=== PATIENT | female | born 1975 | race Two or more races ===

== ENCOUNTER 2017-12-17 11:22 | Emergency (ER) | payer BC ==
[~2017-12-17 11:22] MED LIST: ASP325 PO; BENZ100C4 PO; CELE-1 PO; CIP500 PO; CYC10 PO; DAR100 PO; DIFL5DRO OP; DULO30CA35 PO; FOL1 PO; GABA-492 PO; HYDR200T77 PO; KET10 PO; MELO-150 PO; METHOTREXATE PO; ONDA4TAB PO; PAN40 PO; PER PO; PRO25 PO; SERT25TA87 PO; TRAM-420 PO; TYLENOL ARTHRITIS PO; [UNRECOGNIZED DRUG - CODE] PO
--- NOTE | 2017-12-17 11:26 | ER Report ---
History and Physical Time Seen By MD: 11:25 Hx. of Stated Complaint: mscp radiating to left neck HPI/ROS 42 year old with intermittant cp x 3 days. today worseing pain, midsternal rad to left neck. workup 11 years ago and was diagnosed with lupus at that time Allergies: Coded Allergies: Penicillins (Verified Allergy, Severe, ANAPHYLAXIS, 10/07/17) amoxicillin (Verified Allergy, Severe, AIRWAY OBSTRUCTION, 10/07/17) clavulanic acid (Verified Allergy, Severe, AIRWAY OBSTRUCTION, 10/07/17) Sulfa (Sulfonamide Antibiotics) (Verified Allergy, Intermediate, "PORES BLEED", 10/07/17) adhesive (Verified Allergy, Intermediate, RASH, 10/07/17) ibuprofen (Verified Allergy, Intermediate, RASH, 10/07/17) hydromorphone (Verified Adverse Reaction, Mild, SHAKING, 10/07/17) Home Meds Active Scripts Cyclobenzaprine Hcl (CYCLOBENZAPRINE HCL) 10 Mg Tablet, 5-10 MG PO TID Y for MUSCLE SPASMS, #9 TAB Prov:MIRANDA STEINER 12/17/17 Reported Medications Cyclobenzaprine Hcl (Flexeril) 10 Mg Tab, 20 MG PO QHS, 0 Refills 02/06/11 Discontinued Reported Medications Hydroxychloroquine Sulfate (PLAQUENIL) 200 Mg Tablet, 400 MG PO DAILY 08/14/16 Discontinued Scripts Benzonatate 100 Mg Cap (TESSALON PERLE 100 MG CAP) 100 Mg Capsule, 100 MG PO TID Y for COUGH, #15 CAP Prov:BREE GODWIN PA-C 10/07/17 Tramadol Hcl (TRAMADOL HCL) 50 Mg Tablet, 50 MG PO Q4-6H Y for prn, #8 TAB Prov:BREE GODWIN PA-C 10/07/17 Past Medical/Surgical History lupus, leatha, costochondritis Hx Smoking: No Smoking Status: Never Smoker Hx Substance Use Disorder: No Hx Alcohol Use: Yes Family History of: Other Constitutional Vital Sign - Last 24 Hours 12/17/17 12/17/17 12/17/17 12/17/17 11:22 11:27 11:28 11:37 Pulse ??? 84 83 Resp 16 18 B/P (MAP) 128/85 (99) 128/85 Pulse Ox 99 97 O2 Delivery Room Air 12/17/17 12/17/17 12/17/17 12/17/17 11:40 11:45 11:52 12:00 Pulse 86 Resp 9 B/P (MAP) 113/77 (89) 104/75 (85) 111/78 (89) Pulse Ox 98 12/17/17 12/17/17 12/17/17 12/17/17 12:07 12:08 12:15 12:22 Pulse ??? 83 Resp 15 B/P (MAP) 110/79 (89) 106/78 (87) Pulse Ox 98 12/17/17 12/17/17 12/17/17 12/17/17 12:30 12:37 12:43 12:48 Pulse 76 78 81 Resp 15 17 18 B/P (MAP) 108/76 (87) Pulse Ox 100 98 96 12/17/17 12/17/17 12/17/17 12/17/17 13:00 13:03 13:15 13:18 Pulse 88 95 Resp 16 20 B/P (MAP) 107/78 (88) 112/81 (91) Pulse Ox 98 98 12/17/17 12/17/17 12/17/17 12/17/17 13:30 13:33 13:45 13:48 Pulse 83 78 Resp 19 17 B/P (MAP) 113/76 (88) 113/85 (94) Pulse Ox 98 99 12/17/17 12/17/17 12/17/17 12/17/17 14:00 14:03 14:15 14:18 Pulse 84 78 Resp 16 17 B/P (MAP) 111/76 (88) 106/76 (86) Pulse Ox 97 98 12/17/17 12/17/17 12/17/17 14:30 14:33 14:45 Pulse 83 Resp 20 B/P (MAP) 106/66 (79) 103/73 (83) Pulse Ox 98 Intake and Output 12/17/17 12/17/17 12/18/17 15:00 23:00 07:00 Intake Total 1000 ml Balance 1000 ml Physical Exam 42 year old female alert anxious mild distress, tm non reddened, throat non reddened, hrr lungs cta, and soft bs x 4 , danielle no peripheral edema Medical Decision Making Data Points Result Diagram: 12/17/17 1133 12/17/17 1133 Laboratory Hematology Test 12/17/17 11:33 12/17/17 12:09 12/17/17 13:47 Red Blood Count 4.83 M/uL (4.17-5.56) Mean Corpuscular Volume 90.5 fL (80.0-96.0) Mean Corpuscular Hemoglobin 31.4 pg (26.0-33.0) Mean Corpuscular Hemoglobin Concent 34.7 g/dL (32.0-36.0) Red Cell Distribution Width 12.5 % (11.5-14.5) Mean Platelet Volume 7.8 fL (7.2-11.1) Neutrophils (%) (Auto) 56.6 % (39.4-72.5) Lymphocytes (%) (Auto) 35.3 % (17.6-49.6) Monocytes (%) (Auto) 6.0 % (4.1-12.4) Eosinophils (%) (Auto) 1.3 % (0.4-6.7) Basophils (%) (Auto) 0.8 % (0.3-1.4) Nucleated RBC Relative Count (auto) 0.0 /100WBC Neutrophils # (Auto) 4.9 K/uL (2.0-7.4) Lymphocytes # (Auto) 3.1 K/uL (1.3-3.6) Monocytes # (Auto) 0.5 K/uL (0.3-1.0) Eosinophils # (Auto) 0.1 K/uL (0.0-0.5) Basophils # (Auto) 0.1 K/uL (0.0-0.1) Nucleated RBC Absolute Count (auto) 0.00 K/uL D-Dimer Quantitative (PE/DVT) < 0.27 ug/ml (0-0.50) Sodium Level 141 mmol/L (137-145) Potassium Level 3.6 mmol/L (3.5-5.0) Chloride Level 104 mmol/L (98-107) Carbon Dioxide Level 23 mmol/L (22-31) Blood Urea Nitrogen 7 mg/dl (7-18) Creatinine 0.60 mg/dl (0.52-1.04) Glomerular Filtration Rate Calc > 60.0 Random Glucose 111 mg/dl (75-110) Calcium Level 9.2 mg/dl (8.4-10.2) Magnesium Level 2.1 mg/dl (1.7-2.2) Total Bilirubin 1.1 mg/dl (0.2-1.3) Aspartate Amino Transf (AST/SGOT) 26 U/L (0-35) Alanine Aminotransferase (ALT/SGPT) 50 U/L (0-56) Alkaline Phosphatase 73 U/L (0-126) Total Protein 8.1 gm/dl (6.3-8.2) Albumin 4.5 g/dl (3.5-5.0) Lipase 252 U/L (23-300) Urine Color Yellow Urine Clarity Clear Urine pH 6.0 pH (4.8-9.5) Urine Specific [place] 1.006 Urine Protein Negative mg/dL (NEGATIVE) Urine Glucose (UA) Negative mg/dL (NEGATIVE) Urine Ketones Negative mg/dL (NEGATIVE) Urine Blood Negative (NEGATIVE) Urine Nitrite Negative (NEGATIVE) Urine Bilirubin Negative (NEGATIVE) Urine Urobilinogen Negative mg/dL (0.2-1.9) Urine Leukocyte Esterase Negative (NEGATIVE) Urine RBC None /HPF (0-2/HPF) Urine WBC 1 /HPF (0-5/HPF) Urine Squamous Epithelial Cells Few /LPF (</=FEW) Urine Bacteria Negative /HPF (NONE-FEW) Urine Mucus None /HPF (NONE-FEW) Urine Opiates Screen Negative Urine Barbiturates Screen Negative Ur Tricyclic Antidepressants Screen Negative Urine Phencyclidine Screen Negative Urine Amphetamines Screen Negative Urine Benzodiazepines Screen Negative Urine Cocaine Screen Negative Urine Cannabinoids Screen Negative Troponin I < 0.012 ng/ml Chemistry Test 12/17/17 11:33 12/17/17 12:09 12/17/17 13:47 White Blood Count 8.6 k/uL (4.5-11.0) Red Blood Count 4.83 M/uL (4.17-5.56) Hemoglobin 15.2 g/dL (12.0-16.0) Hematocrit 43.7 % (34.0-47.0) Mean Corpuscular Volume 90.5 fL (80.0-96.0) Mean Corpuscular Hemoglobin 31.4 pg (26.0-33.0) Mean Corpuscular Hemoglobin Concent 34.7 g/dL (32.0-36.0) Red Cell Distribution Width 12.5 % (11.5-14.5) Platelet Count 243 K/uL (150-450) Mean Platelet Volume 7.8 fL (7.2-11.1) Neutrophils (%) (Auto) 56.6 % (39.4-72.5) Lymphocytes (%) (Auto) 35.3 % (17.6-49.6) Monocytes (%) (Auto) 6.0 % (4.1-12.4) Eosinophils (%) (Auto) 1.3 % (0.4-6.7) Basophils (%) (Auto) 0.8 % (0.3-1.4) Nucleated RBC Relative Count (auto) 0.0 /100WBC Neutrophils # (Auto) 4.9 K/uL (2.0-7.4) Lymphocytes # (Auto) 3.1 K/uL (1.3-3.6) Monocytes # (Auto) 0.5 K/uL (0.3-1.0) Eosinophils # (Auto) 0.1 K/uL (0.0-0.5) Basophils # (Auto) 0.1 K/uL (0.0-0.1) Nucleated RBC Absolute Count (auto) 0.00 K/uL D-Dimer Quantitative (PE/DVT) < 0.27 ug/ml (0-0.50) Glomerular Filtration Rate Calc > 60.0 Calcium Level 9.2 mg/dl (8.4-10.2) Magnesium Level 2.1 mg/dl (1.7-2.2) Total Bilirubin 1.1 mg/dl (0.2-1.3) Aspartate Amino Transf (AST/SGOT) 26 U/L (0-35) Alanine Aminotransferase (ALT/SGPT) 50 U/L (0-56) Alkaline Phosphatase 73 U/L (0-126) Total Protein 8.1 gm/dl (6.3-8.2) Albumin 4.5 g/dl (3.5-5.0) Lipase 252 U/L (23-300) Urine Color Yellow Urine Clarity Clear Urine pH 6.0 pH (4.8-9.5) Urine Specific [place] 1.006 Urine Protein Negative mg/dL (NEGATIVE) Urine Glucose (UA) Negative mg/dL (NEGATIVE) Urine Ketones Negative mg/dL (NEGATIVE) Urine Blood Negative (NEGATIVE) Urine Nitrite Negative (NEGATIVE) Urine Bilirubin Negative (NEGATIVE) Urine Urobilinogen Negative mg/dL (0.2-1.9) Urine Leukocyte Esterase Negative (NEGATIVE) Urine RBC None /HPF (0-2/HPF) Urine WBC 1 /HPF (0-5/HPF) Urine Squamous Epithelial Cells Few /LPF (</=FEW) Urine Bacteria Negative /HPF (NONE-FEW) Urine Mucus None /HPF (NONE-FEW) Urine Opiates Screen Negative Urine Barbiturates Screen Negative Ur Tricyclic Antidepressants Screen Negative Urine Phencyclidine Screen Negative Urine Amphetamines Screen Negative Urine Benzodiazepines Screen Negative Urine Cocaine Screen Negative Urine Cannabinoids Screen Negative Troponin I < 0.012 ng/ml Coagulation Test 12/17/17 11:33 D-Dimer Quantitative (PE/DVT) < 0.27 ug/ml Toxicology Test 12/17/17 12:09 Urine Opiates Screen Negative Urine Barbiturates Screen Negative Ur Tricyclic Antidepressants Screen Negative Urine Phencyclidine Screen Negative Urine Amphetamines Screen Negative Urine Benzodiazepines Screen Negative Urine Cocaine Screen Negative Urine Cannabinoids Screen Negative Urinalysis Test 12/17/17 12:09 Urine Color Yellow Urine Clarity Clear Urine pH 6.0 pH (4.8-9.5) Urine Specific [place] 1.006 Urine Protein Negative mg/dL (NEGATIVE) Urine Glucose (UA) Negative mg/dL (NEGATIVE) Urine Ketones Negative mg/dL (NEGATIVE) Urine Blood Negative (NEGATIVE) Urine Nitrite Negative (NEGATIVE) Urine Bilirubin Negative (NEGATIVE) Urine Urobilinogen Negative mg/dL (0.2-1.9) Urine Leukocyte Esterase Negative (NEGATIVE) Urine RBC None /HPF (0-2/HPF) Urine WBC 1 /HPF (0-5/HPF) Urine Squamous Epithelial Cells Few /LPF (</=FEW) Urine Bacteria Negative /HPF (NONE-FEW) Urine Mucus None /HPF (NONE-FEW) EKG/Imaging EKG Interpretation EKG at 1127 sinus rhythm RI interval 0.104 QTc is 456 Monitor Interpretation: Normal Sinus Rhythm ED Course/Re-evaluation ED Course Negative workup in the emergency room did do serial troponins they were both negative pain is reproducible to palpation we'll treat this is costochondritis she is allergic to NSAIDs fall off for muscle relaxant and heat follow-up with her primary care physician Re-evaluation Given Ativan half a milligram in the emergency room pain is much better after this treatment Decision to Disposition Date: Dec 17, 2017 Decision to Disposition Time: 14:45 Depart Departure Latest Vital Signs Vital Signs Date Time Temp Pulse Resp B/P (MAP) Pulse Ox O2 Delivery O2 Flow Rate FiO2 12/17/17 14:45 103/73 (83) 12/17/17 14:33 83 20 98 12/17/17 11:28 Room Air Impression: Primary Impression: Acute costochondritis Condition: Improved Disposition: HOME OR SELF-CARE Referrals: STACEY DICKINSON DO (PCP) 2 Days New Scripts Cyclobenzaprine Hcl (CYCLOBENZAPRINE HCL) 10 Mg Tablet 5-10 MG PO TID Y for MUSCLE SPASMS, #9 TAB Prov: MIRANDA STEINER 12/17/17 Patient Instructions: Costochondritis (ED) Additional Instructions: Home and rest you can use heat on your chest as needed for pain return for increasing symptoms not tolerating at home otherwise follow-up with your primary care physician MIRANDA STEINER Dec 17, 2017 11:26
[2017-12-17] MEDS ORDERED: NS(*) 0.9% 1000 ML BAG 1,000 ML IV ONE (11:29)
[2017-12-17] MEDS ORDERED: NITROGLYCERIN 0.4 MG SUBL SL SCH (11:30)
[2017-12-17] MEDS ORDERED: ASPIRIN 81 MG CHEW PO ONE (11:30)
[2017-12-17 11:42] LABS: PLATELET COUNT, AUTOMATED 243 K/uL (150-450)
--- NOTE | 2017-12-17 12:09 | RADIOLOGY IMAGING REPORT ---
FACILITY: [facility] - [place] PATIENT NAME: Mirta Barba : 1975 MR: [id number] V: [id number] EXAM DATE: ORDERING PHYSICIAN: MIRANDA STEINER TECHNOLOGIST: Location: [facility] Patient: Mirta Barba : 1975 Visit/Account:[id number] Date of Sevice: 12/17/2017 Exam type: CHEST SINGLE AP History: Chest Pain Comparison: September 17, 2017. Findings: The lungs are free of acute effusions, infiltrates or edema. There is no evidence of a pneumothorax or pneumomediastinum.. Cardiac silhouette is normal in size. Trachea is in midline. This visualize d bones are grossly unremarkable. Surgical clips are present in the right upper quadrant IMPRESSION: 1. No acute cardiopulmonary process is seen Report Dictated By: Hanna Jenkins MD at 12/17/2017 12:03 PM Report E-Signed By: Hanna Jenkins MD at 12/17/2017 12:05 PM WSN:[email or web address]
[2017-12-17] MEDS ORDERED: LORazepam 2 MG/ML VIAL IVP ONE (12:25)
--- NOTE | 2017-12-17 12:33 | EKG ---
FACILITY: [facility] PATIENT NAME: JACOB WALLIS : [id number] MR: [id number] V: [id number] EXAM DATE: ORDERING PHYSICIAN: MIRANDA STEINER TECHNOLOGIST: KINJAL Momin Reason : CP Blood Pressure : / mmHG Vent. Rate : 085 BPM Atrial Rate : 085 BPM P-R Int : 104 ms QRS Dur : 082 ms QT Int : 384 ms P-R-T Axes : 046 059 064 degrees QTc Int : 456 ms Sinus rhythm with short CA Otherwise normal ECG No previous ECGs available Confirmed by XIN BEDOYA ([id number]) on 12/18/2017 4:08:29 AM Referred By: OBDULIA Confirmed By:XIN BEDOYA
--- NOTE | 2017-12-17 13:31 | EKG ---
FACILITY: [facility] PATIENT NAME: JACOB WALLIS : [id number] MR: [id number] V: [id number] EXAM DATE: ORDERING PHYSICIAN: MIRANDA STEINER TECHNOLOGIST: KINJAL Momin Reason : REPEAT Blood Pressure : / mmHG Vent. Rate : 076 BPM Atrial Rate : 076 BPM P-R Int : 080 ms QRS Dur : 084 ms QT Int : 410 ms P-R-T Axes : 033 068 071 degrees QTc Int : 461 ms Sinus rhythm with short ID Otherwise normal ECG No previous ECGs available Confirmed by XIN BEDOYA ([id number]) on 12/18/2017 4:08:42 AM Referred By: Confirmed By:XIN BEDOYA
[2017-12-17] MEDS ORDERED: CYCL10TA29 PO (14:32)
[2017-12-17 14:45] VITALS: BP 103/73
== END 2017-12-17 14:45 | disposition home or self-care (01) ==
LOC: ER 11:26
DX: M94.0 Chondrocostal junction syndrome [Tietze] (principal)
CPT/HCPCS: 36415; 71045; 80305; 81001; 83690; 83735; 84484; 85025; 85379; 93005; 96361; 96374; 99284; J2060; J7030; 82040; 82247; 82310; 82374; 82435; 82565; 82947; 84075; 84132; 84155; 84295; 84450; 84460; 84520

== ENCOUNTER → 2018-03-25 | Outpatient (CLI) | payer BC ==
[~2018-03-25] MED LIST changes: +CYCL10TA29 PO
--- NOTE | 2018-03-25 16:19 | RADIOLOGY IMAGING REPORT ---
FACILITY: [facility] - [place] PATIENT NAME: Mirta Barba : 1975 MR: [id number] V: [id number] EXAM DATE: ORDERING PHYSICIAN: STACEY DICKINSON TECHNOLOGIST: Location: [facility] [place] Patient: Mirta Barba : 1975 Visit/Account:[id number] Date of Sevice: 03/25/2018 VENOUS DOPP LOW LEFT EXTREMITY HISTORY: Left leg swelling and pain, left calf pain. Concern for deep venous thrombus. COMPARISON: None. FINDINGS: Grayscale, duplex and color Doppler interrogation of the left lower extremity deep veins from common femoral vein to proximal calf was completed. Compression was performed where it was possible. The rig ht common femoral vein was evaluated using similar technique. Common femoral vein - Negative. Femoral vein - Negative. Deep femoral vein - Negative. Popliteal vein - Negative. Visualized deep calf veins - Negative. Popliteal fossa: Negative. There is no sonographic abnormality at the site of left calf pain. Contralateral (right) common femoral vein: Negative. IMPRESSION: 1. No evidence of acute deep venous thrombosis in the visualized veins of the left lower extremity. 2. No sonographic abnormalities of the site of left calf pain. Report Dictated By: Rikki Aleman at 03/25/2018 4:14 PM Report E-Signed By: Rikki Aleman at 03/25/2018 4:15 PM WSN:[id number]
== END ==
LOC: US 14:21
PROVIDERS: ATTEND Family Medicine
DX: M79.89 Other specified soft tissue disorders (principal)

== ENCOUNTER 2018-06-25 11:42 | Outpatient (RCR) | payer BC ==
--- NOTE | 2018-06-28 22:46 | RADIOLOGY IMAGING REPORT ---
[place] [facility] [place]IENT NAME: Mirta Barba : 1975 MR: [id number] V: [id number] EXAM DATE: ORDERING PHYSICIAN: ESTEBAN HWANG [place]CHN[place]IST: [place] [facility] [place] : 1975 Visit/Account:[id number] Date of Sevice: 06/25/2018 Gallium whole body scan. Comparison: 09/30/2015. History: Inflammation. Procedure: Standard anterior and posterior whole-body imaging is acquired 24 and 72 hours following t he administration of 4.6 mCi gallium-67. Dedicated two-view planar images of the feet, knees, hips, shoulders, elbows and hands were also obtained. Findings: Physiologic uptake of gallium within the liver, spleen, lacrimal glands, and nasopharynx. P rominent large bowel activity is present on both the 24 and 72 hour images, similar to prior and like ly physiologic. Activity throughout the osseous structures is symmetric and within normal limits with no suspicious focus of tracer accumulation identified, similar in appearance to prior. IMPRESSION: Grossly negative whole body gallium study. No significant change compared to 09/28/2015 Report Dictated By: Mesfin Segal MD at 06/28/2018 10:33 PM Report E-Signed By: Mesfin Segal MD at 06/28/2018 10:42 PM WSN:[id number]
== END 2018-06-25 18:00 | disposition home or self-care (01) ==
LOC: RAD 11:42
PROVIDERS: ATTEND Internal Medicine
DX: M35.1 Other overlap syndromes (principal)
CPT/HCPCS: 78802; A9556

== ENCOUNTER → 2018-09-03 | Outpatient (CLI) | payer BC ==
[~2018-09-03] MED LIST changes: +IOPAMIDOL 76% 75 ML INFUS BTL 75 ML ONE
--- NOTE | 2018-09-03 14:47 | RADIOLOGY IMAGING REPORT ---
[place] [facility] [place] NAME: Mirta Barba : 1975 MR: [id number] V: [id number] EXAM DATE: ORDERING PHYSICIAN: STACEY DICKINSON TECHNOLOGIST: Location: [facility] Patient: Mirta Barba : 1975 Visit/Account:[id number] Date of Sevice: 09/03/2018 ABDOMEN/PELVIS WITH CONTRAST HISTORY: Right-sided pain x3 months with diarrhea TECHNIQUE: Following administration of IV contrast contiguous axial images acquired through the abdom en/pelvis. Coronal and sagittal reformatting also performed.Dose Lowering Technique One of the following dose optimization techniques was utilized in the performance of this exam: Autom ated exposure control; adjustment of the mA and/or kV according to the patient's size; or use of an i terative reconstruction technique. Specific details can be referenced in the facility's radiology C T exam operational policy. CONTRAST: 75 mL Isovue-370 COMPARISON: CT on pelvis October 14, 2015 FINDINGS: Visualized lung bases: There is a 3 x 4 mm noncalcified nodule medial aspect left lower lobe best se en on image 57 of series 3 . This has remained stable Hepatobiliary: There are postsurgical changes from a cholecystectomy Spleen: Negative. Adrenals: Negative. Pancreas: Negative. Kidneys ureters or bladder: Negative. Genitalia: Postsurgical changes from hysterectomy GI: There is mild diverticulosis scattered throughout the colon. There is very mild thickening the mid transverse colon although appears similar to the prior study. No inflammatory changes seen in th e adjacent fat. Vessels/spaces/nodes: Negative. Bones/soft tissues: There is a small sclerotic region seen in the posterior aspect of the T9 vertebr al body although appears similar to the prior study Additional findings: None pertinent. IMPRESSION: Mild diverticulosis scattered throughout colon There is very mild thickening the mid transverse colon although appears similar to the prior study. No inflammatory changes are seen in the surrounding fat although subtle diverticulitis not totally ex cluded. Additional chronic findings Report Dictated By: Hanna Jenkins MD at 09/03/2018 2:00 PM Report E-Signed By: Hanna Jenkins MD at 09/03/2018 2:42 PM WSN:[email or web address]
== END ==
LOC: CT 11:14
PROVIDERS: ATTEND Family Medicine
DX: K57.53 Diverticulitis of both small and large intestine without perforation or abscess with bleeding (principal); R91.8 Other nonspecific abnormal finding of lung field; M47.814 Spondylosis without myelopathy or radiculopathy, thoracic region
CPT/HCPCS: 74177; Q9967

== ENCOUNTER 2019-02-05 20:04 | Emergency (ER) | payer BC ==
[~2019-02-05 20:04] MED LIST changes: -IOPAMIDOL 76% 75 ML INFUS BTL 75 ML ONE
--- NOTE | 2019-02-05 20:14 | ER Report ---
History and Physical Time Seen By MD: 20:10 HPI/ROS CHIEF COMPLAINT: Chest pain HISTORY OF PRESENT ILLNESS: 43-year-old female with a history of lupus presents with substernal chest pain. She's been having the pain for over one week. She is being treated for costochondritis by Dr Peralta with a course of steroids, which she just finished. She notes that her chest has gotten better, but she's developed burning pain which is behind her sternum. She notes some mild shortness of breath. She notes no nausea, diaphoresis. She notes no exertional component. She denies cardiac disease. She denies a history of DVT, but she notes she had a previous history of superficial phlebitis in her leg. Patient's just concerned that her pain is getting worse despite the treatment. Patient has an allergy to ibuprofen and ? NSAIDs Review of systems: Respiratory: No cough, no dyspnea. Cardiovascular: As above Gastrointestinal: No vomiting, no abdominal pain. Musculoskeletal: No back pain. Allergies: Coded Allergies: Penicillins (Verified Allergy, Severe, ANAPHYLAXIS, 10/07/17) amoxicillin (Verified Allergy, Severe, AIRWAY OBSTRUCTION, 10/07/17) clavulanic acid (Verified Allergy, Severe, AIRWAY OBSTRUCTION, 10/07/17) Sulfa (Sulfonamide Antibiotics) (Verified Allergy, Intermediate, "PORES BLEED", 10/07/17) adhesive (Verified Allergy, Intermediate, RASH, 10/07/17) ibuprofen (Verified Allergy, Intermediate, RASH, 10/07/17) hydromorphone (Verified Adverse Reaction, Mild, SHAKING, 10/07/17) Home Meds Reported Medications Hydroxychloroquine Sulfate (PLAQUENIL) 200 Mg Tablet, 400 MG PO QDAY 02/05/19 Cyclobenzaprine Hcl (CYCLOBENZAPRINE HCL) 10 Mg Tablet, 10 MG PO QDAY, #9 TAB 02/05/19 Discontinued Reported Medications Cyclobenzaprine Hcl (Flexeril) 10 Mg Tab, 20 MG PO QHS, 0 Refills 02/06/11 Discontinued Scripts Cyclobenzaprine Hcl (CYCLOBENZAPRINE HCL) 10 Mg Tablet, 5-10 MG PO TID PRN for MUSCLE SPASMS, #9 TAB Prov:MIRANDA STEINER APRN-C 12/17/17 Past Medical/Surgical History lupus, leatha, costochondritis Reviewed Nurses Notes: Yes Old Medical Records Reviewed: Yes Hx Smoking: No Smoking Status: Never Smoker Hx Substance Use Disorder: No Hx Alcohol Use: Yes Constitutional Vital Sign - Last 24 Hours 02/05/19 02/05/19 02/05/19 02/05/19 20:11 20:19 20:30 20:34 Temp 98.0 Pulse 78 86 90 Resp 20 13 21 B/P (MAP) 119/83 105/76 (86) Pulse Ox 97 91 93 O2 Delivery Room Air 02/05/19 02/05/19 20:49 20:54 Pulse 83 82 Resp 17 18 Pulse Ox 95 93 Physical Exam Vital signs stable, afebrile, pulse ox normal General Appearance: The patient is alert, has no immediate need for airway protection and no current signs of toxicity. No acute distress HEENT: Pupils equal and round no injection. TMs normal, oropharynx without redness or exudate Respiratory: Chest is non tender, lungs are clear to auscultation. Positive chest wall tenderness along the costal sternal margin Cardiac: regular rate and rhythm Gastrointestinal: Abdomen is soft and non tender, no masses, bowel sounds normal. Musculoskeletal: Neck: Neck is supple and non tender. Extremities have full range of motion and are non tender. No edema, no calf tenderness, negative Homans sign Skin: No rashes or lesions. DIFFERENTIAL DIAGNOSIS: After history and physical exam differential diagnosis was considered for chest pain including but not limited to myocardial ischemia, pericarditis pulmonary embolus, chest wall pain, pleural inflammation and pulmonary infectious causes. Medical Decision Making Data Points Result Diagram: 02/05/19201102/05/192011 Laboratory Hematology Test 02/05/19 20:12 Red Blood Count 4.80 M/uL (4.17-5.56) Mean Corpuscular Volume 89.8 fL (80.0-96.0) Mean Corpuscular Hemoglobin 30.6 pg (26.0-33.0) Mean Corpuscular Hemoglobin Concent 34.1 g/dL (32.0-36.0) Red Cell Distribution Width 13.0 % (11.5-14.5) Mean Platelet Volume 7.5 fL (7.2-11.1) Neutrophils (%) (Auto) 55.9 % (39.4-72.5) Lymphocytes (%) (Auto) 35.8 % (17.6-49.6) Monocytes (%) (Auto) 5.6 % (4.1-12.4) Eosinophils (%) (Auto) 2.5 % (0.4-6.7) Basophils (%) (Auto) 0.2 % (0.3-1.4) Nucleated RBC Relative Count (auto) 0.0 /100WBC Neutrophils # (Auto) 6.4 K/uL (2.0-7.4) Lymphocytes # (Auto) 4.1 K/uL (1.3-3.6) Monocytes # (Auto) 0.6 K/uL (0.3-1.0) Eosinophils # (Auto) 0.3 K/uL (0.0-0.5) Basophils # (Auto) 0.0 K/uL (0.0-0.1) Nucleated RBC Absolute Count (auto) 0.00 K/uL D-Dimer Quantitative (PE/DVT) < 0.27 ug/ml (0-0.50) Sodium Level 140 mmol/L (137-145) Potassium Level 3.4 mmol/L (3.5-5.0) Chloride Level 104 mmol/L (98-107) Carbon Dioxide Level 26 mmol/L (22-31) Blood Urea Nitrogen 13 mg/dl (7-18) Creatinine 0.80 mg/dl (0.52-1.04) Glomerular Filtration Rate Calc > 60.0 Random Glucose 98 mg/dl (75-110) Calcium Level 9.3 mg/dl (8.4-10.2) Total Bilirubin 0.6 mg/dl (0.2-1.3) Aspartate Amino Transf (AST/SGOT) 18 U/L (0-35) Alanine Aminotransferase (ALT/SGPT) 21 U/L (0-56) Alkaline Phosphatase 53 U/L (0-126) Troponin I < 0.012 ng/ml B-Type Natriuretic Peptide < 5 pg/ml (0-100) Total Protein 7.7 g/dl (6.3-8.2) Albumin 4.6 g/dl (3.5-5.0) Chemistry Test 02/05/19 20:12 White Blood Count 11.5 k/uL (4.5-11.0) Red Blood Count 4.80 M/uL (4.17-5.56) Hemoglobin 14.7 g/dL (12.0-16.0) Hematocrit 43.1 % (34.0-47.0) Mean Corpuscular Volume 89.8 fL (80.0-96.0) Mean Corpuscular Hemoglobin 30.6 pg (26.0-33.0) Mean Corpuscular Hemoglobin Concent 34.1 g/dL (32.0-36.0) Red Cell Distribution Width 13.0 % (11.5-14.5) Platelet Count 278 K/uL (150-450) Mean Platelet Volume 7.5 fL (7.2-11.1) Neutrophils (%) (Auto) 55.9 % (39.4-72.5) Lymphocytes (%) (Auto) 35.8 % (17.6-49.6) Monocytes (%) (Auto) 5.6 % (4.1-12.4) Eosinophils (%) (Auto) 2.5 % (0.4-6.7) Basophils (%) (Auto) 0.2 % (0.3-1.4) Nucleated RBC Relative Count (auto) 0.0 /100WBC Neutrophils # (Auto) 6.4 K/uL (2.0-7.4) Lymphocytes # (Auto) 4.1 K/uL (1.3-3.6) Monocytes # (Auto) 0.6 K/uL (0.3-1.0) Eosinophils # (Auto) 0.3 K/uL (0.0-0.5) Basophils # (Auto) 0.0 K/uL (0.0-0.1) Nucleated RBC Absolute Count (auto) 0.00 K/uL D-Dimer Quantitative (PE/DVT) < 0.27 ug/ml (0-0.50) Glomerular Filtration Rate Calc > 60.0 Calcium Level 9.3 mg/dl (8.4-10.2) Total Bilirubin 0.6 mg/dl (0.2-1.3) Aspartate Amino Transf (AST/SGOT) 18 U/L (0-35) Alanine Aminotransferase (ALT/SGPT) 21 U/L (0-56) Alkaline Phosphatase 53 U/L (0-126) Troponin I < 0.012 ng/ml B-Type Natriuretic Peptide < 5 pg/ml (0-100) Total Protein 7.7 g/dl (6.3-8.2) Albumin 4.6 g/dl (3.5-5.0) Coagulation Test 02/05/19 20:12 D-Dimer Quantitative (PE/DVT) < 0.27 ug/ml EKG/Imaging EKG Interpretation 12 lead EK Rhythm: Normal sinus rhythm with short IN Center [place]: normal QRS: normal,? New Q waves in V1 through V3 of crushable significance, question old anterior septal infarct versus lead placement ST segments: normal, comparison to previous EKG 12/17/17, no significant change Imaging X-ray: Two-view chest x-ray was obtained. I viewed the images myself on the PACS system. My interpretation of the images is: No infiltrate, no effusion, normal mediastinum., Comparison to previous chest x-ray 12/17/17, no significant change. The radiologist interpretation had no clinically significant variation from this interpretation. ED Course/Re-evaluation Clinical Indication for ER IV: IV Access ED Course Patient was admitted to an examination room. H&P was done. The differential diagnoses was considered. Her EKG is unremarkable. There are new Q waves in the V leads 1-3. Likely lead placement. Patient's diagnostic laboratory studies are negative, troponin, d-dimer, BMP, chest x-ray are all unremarkable. Patient's reassured. Patient's advised to take Prilosec 20 g per day to reduce her acid. I suspect she is having GERD and stomach symptoms from the steroid burst prescribed by her primary care. She did not have change in symptoms with a GI cocktail, however. She is advised Aleve for inflammatory pain relief and follow-up with primary care or Rheumatology if unimproved Decision to Disposition Date: Feb 05, 2019 Decision to Disposition Time: 20:39 Depart Departure Latest Vital Signs Vital Signs Date Time Temp Pulse Resp B/P (MAP) Pulse Ox O2 Delivery O2 Flow Rate FiO2 02/05/19 20:54 82 18 93 02/05/19 20:30 105/76 (86) 02/05/19 20:11 98.0 Room Air Impression: Primary Impression: Chest pain Additional Impression: History of lupus Condition: Improved Disposition: HOME OR SELF-CARE Referrals: STACEY PERALTA DO (PCP) Patient Instructions: Costochondritis (ED), Gastroesophageal Reflux Disease (ED) Additional Instructions: Take Prilosec 20 mg per day for one to 2 weeks Take Aleve 220 mg 2 tablets twice daily with food for one week Follow-up with your primary care or 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
[2019-02-05] MEDS ORDERED: LIDOCAINE 2% VISC SLN 15ML UDC PO ONE (20:15)
[2019-02-05] MEDS ORDERED: MAG HYD/AL HYD/SIMETH 30ML UDC PO ONE (20:15)
--- NOTE | 2019-02-05 20:24 | EKG ---
FACILITY: [facility] [place] PATIENT NAME: JACOB WALLIS : [id number] MR: [id number] V: [id number] EXAM DATE: ORDERING PHYSICIAN: OSCAR SAMSON TECHNOLOGIST: CASS Test Reason : CARDIAC Blood Pressure : / mmHG Vent. Rate : 078 BPM Atrial Rate : 078 BPM P-R Int : 108 ms QRS Dur : 090 ms QT Int : 400 ms P-R-T Axes : 038 044 054 degrees QTc Int : 456 ms Sinus rhythm with short AL Anteroseptal infarct , age undetermined Abnormal ECG When compared with ECG of 17-DEC-2017 13:20, Anteroseptal infarct is now present Nonspecific T wave abnormality now evident in Anterior leads Confirmed by XIN BEDOYA ([id number]) on 02/06/2019 6:25:45 AM Referred By: Confirmed By:XIN BEDOYA
[2019-02-05 20:28] LABS: PLATELET COUNT, AUTOMATED 278 K/uL (150-450)
[2019-02-05 20:30] VITALS: BP 105/76
[2019-02-05] MEDS ORDERED: CYCL10TA29 PO (20:35)
[2019-02-05] MEDS ORDERED: HYDR200T77 PO (20:35)
--- NOTE | 2019-02-05 20:56 | RADIOLOGY IMAGING REPORT ---
FACILITY: [facility] PATIENT NAME: Mirta Barba : 1975 MR: [id number] V: [id number] EXAM DATE: ORDERING PHYSICIAN: OSCAR SAMSON TECHNOLOGIST: Location: [facility] Patient: Mirta Barba : 1975 Visit/Account:[id number] Date of Sevice: 02/05/2019 HISTORY: Chest pain DATE: 02/05/2019 8:14 PM TECHNIQUE: CHEST PA LAT COMPARISON: Chest radiographs December 17, 2017 FINDINGS: The cardiomediastinal silhouette is of normal size and contour. No pleural effusion. No pne umothorax. No consolidation. The lungs are adequately expanded. IMPRESSION: No acute findings Report Dictated By: Mary Spears MD at 02/05/2019 8:51 PM Report E-Signed By: Mary Spears MD at 02/05/2019 8:53 PM WSN:[id number]
== END 2019-02-05 20:57 | disposition home or self-care (01) ==
LOC: ER 20:14
DX: R07.9 Chest pain, unspecified (principal)
CPT/HCPCS: 71046; 82040; 82247; 82310; 82374; 82435; 82565; 82947; 83880; 84075; 84132; 84155; 84295; 84450; 84460; 84484; 84520; 85025; 85379; 93005; 99284

== ENCOUNTER → 2019-03-11 | Outpatient (CLI) | payer BC ==
--- NOTE | 2019-03-11 12:19 | RADIOLOGY IMAGING REPORT ---
[place] [facility] [place] Mirta Barba : 1975 MR: [id number] V: [id number] EXAM DATE: ORDERING PHYSICIAN: STACEY DICKINSON TECHNOLOGIST: Location: Patient: Mirta Barba : 1975 Visit/Account:[id number] Date of Sevice: 03/11/2019 Examination: MRI right femur/thigh without contrast HISTORY: Mixed connective tissue disorder. Thigh pain. Contusion. TECHNIQUE: Multiplanar, multisequence MRI examination is performed of the right femur/thigh without c ontrast. COMPARISON: None available. FINDINGS: There is a well-circumscribed, benign-appearing lesion within the intertrochanteric region of the pro ximal right femur. This is low in T1 signal and appears well circumscribed. This is uniformly T2 brig ht. Appearance would favor a small, benign chondrus lesion such as a small enchondroma. This measures 10 mm in size. No surrounding marrow edema or bone destruction. The marrow pattern of the right femu r is otherwise normal. Proximally, the right hip joint is normal. Distally, the knee joint appears grossly unremarkable. No joint effusion. No enlarged inguinal/groin nodes are identified. With respect to the thigh musculature, the quadriceps muscles are normal in signal and bulk. The hams tring musculature is normal in signal and bulk. There is subtle distal myotendinous edema seen involv ing the adductor longus muscle. No hematoma or fluid collection. Correlate for a low-grade myotendino us strain. There is focal muscle edema and adjacent perifascial edema involving the gracilis muscle w ithin the medial thigh. No well-defined hematoma or fluid collection. This may reflect a low-grade gr acilis muscle strain. Clinical correlation is necessary. IMPRESSION: 1. MRI findings most consistent with a low-grade distal myotendinous strain involving the right adduc tor longus muscle. 2. Question low-grade gracilis muscle strain within the medial thigh. Correlate for symptoms. No jese delmy or fluid collection. 3. Benign-appearing 10 mm lesion within the proximal right femur. MR appearance would favor a benign chondrus lesion such as a small enchondroma. Report Dictated By: Cy Patiño at 03/11/2019 12:05 PM Report E-Signed By: Cy Patiño at 03/11/2019 12:14 PM WSN:[id number]
== END ==
LOC: MRI 00:12
PROVIDERS: ATTEND Family Medicine
DX: R13.10 Dysphagia, unspecified (principal); S70.11XA Contusion of right thigh, initial encounter; M79.651 Pain in right thigh

== ENCOUNTER → 2019-03-20 | Outpatient (CLI) | payer BC ==
[~2019-03-20] MED LIST changes: +BARIUM SULFATE 176 GM BTL PO ONE; +BARIUM SULFATE 340 GM POWD ONE
--- NOTE | 2019-03-20 10:17 | RADIOLOGY IMAGING REPORT ---
FACILITY: [facility] PATIENT NAME: Mirta Barba : 1975 MR: [id number] V: [id number] EXAM DATE: ORDERING PHYSICIAN: STACEY DICKINSON TECHNOLOGIST: [place] [facility] [place] Patient: Mirta Barba : 1975 Visit/Account:[id number] Date of Sevice: 03/20/2019 Exam type: ESOPHAGRAM History: Mixed connective tissue disease for 13 years, chest pain Comparison: None. Findings: Double contrast esophagram was performed with thick and thin barium and air contrast. There is a mil d impression on the posterior aspect of the cervical esophagus secondary to anterior osteophytes in t he cervical spine. The esophagus was never well distended with contrast although appear to be relate d to patient's difficulty in swallowing a large bolus of barium. Focal narrowing in the distal esoph javier is not appreciated. There is a mild to moderate amount of gastroesophageal reflux observed. Th e dose area product is 197.68 micro-[place] per meter squared . IMPRESSION: 1. There is a mild impression on the posterior aspect of the cervical esophagus secondary to anterio r osteophytes in the cervical spine. The esophagus was never well distended with contrast although appear to be related to patient's diffi culty in swallowing a large bolus of barium. Mild to moderate amount of gastric soft reflux was obse rved Report Dictated By: Hanna Jenkins MD at 03/20/2019 10:02 AM Report E-Signed By: Hanna Jenkins MD at 03/20/2019 10:13 AM WSN:[email or web address]
== END ==
LOC: RAD 01:03
PROVIDERS: ATTEND Family Medicine
DX: K21.9 Gastro-esophageal reflux disease without esophagitis (principal)
CPT/HCPCS: 74220

== ENCOUNTER → 2019-03-21 | Outpatient (CLI) | payer BC ==
[~2019-03-21] MED LIST changes: -BARIUM SULFATE 176 GM BTL PO ONE; -BARIUM SULFATE 340 GM POWD ONE
== END ==
LOC: RESP 01:07
PROVIDERS: ATTEND Family Medicine
DX: R07.9 Chest pain, unspecified (principal)
CPT/HCPCS: 93017; 93350